=== PATIENT | female | born 2000 | race Caucasian/White ===

== ENCOUNTER 2023-06-04 06:40 | Emergency (ER) | payer OTHER, SELFPAY ==
--- NOTE | ~2023-06-04 | CT_ITS ---
EXAMINATION: CT SOFT TISSUE NECK WITHOUT CONTRAST CLINICAL INFORMATION: Sore throat. Rule out abscess. COMPARISON: None available. TECHNIQUE: Helical imaging was performed in the axial plane with generation of coronal and sagittal reformatted images. This CT examination was performed using dose optimization techniques as appropriate, variously including the following: *Automated exposure control *Adjustment of mA and/or kV according to patient size (this includes techniques or standardized protocols for targeted exams where dose is matched to indication/reason for exam; i.e. extremities or head) *Use of iterative reconstruction technique DLP: 275 mGy-cm FINDINGS: There is mild straightening of cervical lordosis. The vertebral heights, alignment and disc heights are normal. Visualized intraparenchymal brain parenchyma is normal. The paranasal sinuses and mastoid air cells are well-aerated. There is minimal minimally asymmetric thickening of left tonsillar pillar without any heterogeneity, fluid or abscess collection. The nasopharyngeal and laryngeal airway is widely patent. The parapharyngeal soft tissues are normal. Visualized larynx, epiglottis and paralaryngeal soft tissues are normal. Bilateral parotid, submandibular glands and thyroid lobes are symmetrical and normal. No abnormal size neck lymph nodes or mass seen. The lung apices are clear. CT/CT soft tissue neck wo IV con IMPRESSION: Mild asymmetric thickening of left tonsil but no tonsillar abscess or airway compromise No abnormal neck lymph nodes. Normal sinuses.
[2023-06-04 06:42] VITALS: BP 103/63; PULSE 88; RESP 18; TEMP 37.4; O2SAT 96; BMI 19.9
--- NOTE | 2023-06-04 07:25 | PC.NURSE ---
pt a&ox3. respirations even and unlabored. pt reporting throat pain for one week. pt reports being able to eat and drink but has pain. pt reports a dry cough. pt denies nausea, vomiting and chest pain. pt throat is red without splotches. pt lung sounds clear bilaterally.
[2023-06-04] MEDS: predniSONE 20 MG TABLET 40 MG PO (07:32)
[2023-06-04] MEDS: Ibuprofen 400 MG TABLET PO (07:32)
[2023-06-04 07:34] VITALS: PULSE 94; RESP 18; O2SAT 98
--- NOTE | 2023-06-04 07:38 | ED_ITS ---
HPI - General Adult General Chief complaint: Upper Respiratory Symptoms Stated complaint: Sore throat Time Seen by Provider: 06/04/23 07:12 Source: patient and family (Mother) Mode of arrival: ambulatory Limitations: no limitations History of Present Illness HPI narrative: 22-year-old female otherwise healthy presented with sore throat, body ache, voice change. Patient is able to swallow her own saliva, speak in full sentence, patent airway during the interview. Patient declined any recent travel, no exposure to a sick contact, no fever, no chills. Related Data Allergies Allergy/AdvReac Type Severity Reaction Status Date / Time No Known Allergies Allergy Unverified 06/12/20 16:57 [No Known Allergies*] Review of Systems Review of Systems: All other systems are reviewed and are negative Constitutional: Reports as per HPI and Reports no additional constitutional complaints Eyes: Reports as per HPI and Reports no additional eye complaints Reports system reviewed and no additional complaints, except as documented Cardiovascular: Reports as per HPI and Reports no additional cardiovascular complaints Respiratory: Reports as per HPI and Reports no additional respiratory complaints Gastrointestinal: Reports as per HPI and Reports no additional gastrointestinal complaints Genitourinary: Reports no additional female genitourinary complaints Musculoskeletal: Reports no additional musculoskeletal complaints Skin/Breast: Reports system reviewed and no additional complaints, except as docu Psychiatric: Reports no additional psychiatric complaints Endocrine: Reports no additional endocrine complaints Hematologic/Lymphatic: Reports no additional hematologic/lymphatic complaints Allergic/Immunologic: Reports no additional allergic/immunologic complaints Reports system reviewed and no additional complaints, except as documented and Reports Abnormal speech present [facility] Social History Social History Alcohol intake: never Smoked in Last 30 Days: No Use of substances other than those prescribed or required for medical reasons: No Advance Directives: No Physical Exam ED Vital Signs: Vital Signs - 24 hr 06/04/23 06:42 06/04/23 07:34 06/04/23 07:34 Temperature 99.4 F Pulse Rate 88 94 Respiratory Rate 18 18 Blood Pressure 103/63 Pulse Oximetry 96 98 98 Oxygen Delivery Method Room Air Room Air 06/04/23 08:52 Temperature 100.1 F Pulse Rate 114 H Respiratory Rate 18 Blood Pressure 98/51 L Pulse Oximetry 96 Oxygen Delivery Method Room Air BMI result Body Mass Index 19.9 Vital signs have been reviewed as appeared to be correct. Blood pressure normal. Heart rate normal. Respiration rate normal. Temperature normal. Oxygen saturation normal. Appearance: Alert. Oriented X3. No acute distress. Head: Normal external exam. Normocephalic. Atraumatic. No Vences signs noted. No raccoon eyes noted Eyes: PERRLA. EOMI. Conjunctiva and sclera normal. Eyelids normal. ENT: TM's Normal. Pharynx normal. Uvula midline. Moist mucous membranes. No trismus noted. No drooling noted. No muffled voice noted. Neck: Normal inspection. Neck supple. FROM. No adenopathy. Thyroid Normal. No meningeal signs. No neck mass noted. CVS: Normal heart rate and rhythm. Heart sound normal. No murmurs noted. Pulses normal throughout. Respiratory: No respiratory distress. Painless inspiration. Breath sounds normal. No wheezes/rales/rhonchi noted. Chest nontender. No accessory muscle usage noted or decreased air movement noted. Abdomen: Soft and nontender. Bowel sounds normal in all 4 quadrants. No distention noted. No organomegaly noted. No visible injury noted. Back: No CVA tenderness. Full range of motion noted. Skin: Skin warm and dry. Normal skin color. Normal skin turgor. No rashes/lesions/lacerations noted. Extremities: No lower extremity edema. Extremities exhibit normal range of motion. Extremities nontender. Neuro: Oriented X 3. Cranial nerve exam: II-XII are grossly intact No motor deficit. No sensory deficit. Reflexes normal. Course Reevaluation(s) Reevaluation #1: Came in for sore throat, negative serology for viral infection or strep infection, CT of soft tissue neck showing mild thickening of left tonsil otherwise no abscesses or airway compromise, no lymph node, otherwise unremarkable exam. patient received a dose of ibuprofen/prednisone in the ED which I thought to be sufficient to control patient's symptoms. Time: 08:57 Medications Administered Discontinued Medications Generic Name Dose Route Start Last Admin Trade Name Harvey PRN Reason Stop Dose Admin Ibuprofen 400 mg 06/04/23 07:27 06/04/23 07:32 Ibuprofen 400 Mg Tablet PO 06/04/23 07:28 400 mg ONCE ONE Administration Prednisone 40 mg 06/04/23 07:27 06/04/23 07:32 Prednisone 20 Mg Tablet PO 06/04/23 07:28 40 mg ONCE ONE Administration Medical Decision Making Differential Diagnosis Differential Diagnoses: The differential diagnosis associated with the presentation includes (Viral pharyngitis, bacterial pharyngitis, pr tonsillar abscesses, pharyngeal abscess, influenza, COVID.) Admission/Observation Consideration of admission/observation: Escalation of care including admission/observation considered Lab Data MDM Lab Attestation statement: I reviewed the patient's lab results. Labs: Lab Results 06/04/23 Range/Units 07:56 Influenza Type A (PCR) NEGATIVE (Negative) Influenza Type B (PCR) NEGATIVE (Negative) RSV RNA Qual (PCR) NEGATIVE (Negative) SARS-CoV-2 RNA (RT-PCR) NEGATIVE (Negative) S. pyogenes GrpA GANGA Negative (Negative) Independent Interpretation I performed an independent interpretation of an: CT Scan (Soft tissue neck: No acute pathology.) Radiology Impression Discussion of test interpretation with radiology: I have reviewed the radiologist's reading. (Mild asymmetric thickening of left tonsil but no tonsillar abscess or airway compromise No abnormal neck lymph nodes. Normal sinuses.) Discharge Plan Discharge Clinical Impression: Pharyngitis Patient Disposition: Home, Self-Care Instructions: Pharyngitis (ED) Additional Instructions: Take ibuprofen 200 mg tablet ([id number]) every 6 hours if needed for pain. Stand Alone Forms: Work/School Release
[2023-06-04 08:37] LABS: IDNOW Serial# 08D9AD1C
[2023-06-04 08:38] LABS: Strep A Nucleic Acid Negative (Negative)
[2023-06-04 08:51] LABS: Influenza A PCR NEGATIVE (Negative); Influenza B PCR NEGATIVE (Negative); Resp Syncy Virus RNA Qual PCR NEGATIVE (Negative); SARS COV2 PCR INHOUSE NEGATIVE (Negative)
[2023-06-04 08:52] VITALS: BP 98/51; PULSE 114; RESP 18; TEMP 37.8; O2SAT 96
== END 2023-06-04 09:24 | disposition home or self-care (01) ==
PROVIDERS: Emergency Provider Emergency Medicine
DX: J02.9 Acute pharyngitis, unspecified (principal); Z20.822 Contact with and (suspected) exposure to COVID-19; Z20.828 Contact with and (suspected) exposure to other viral communicable diseases
CPT/HCPCS: 0241U; 70490; 87651; 99284

== ENCOUNTER 2024-03-13 11:59 | Emergency (ER) | payer OTHER, SELFPAY ==
[2024-03-13 12:31] VITALS: BP 103/56; PULSE 97; RESP 16; TEMP 37.3; O2SAT 98; BMI 19.6
--- NOTE | 2024-03-13 12:35 | ED.GENADULT ---
HPI - General Adult General Chief complaint: Animal Bite Stated complaint: Dog bite Time Seen by Provider: 03/13/24 13:10 Source: patient Mode of arrival: ambulatory Limitations: no limitations History of Present Illness ED Provider: Tara Ramirez PA-C HPI narrative: 23-year-old female presents to the ER for evaluation of a dog bite to her left hand about 5 or 6 hours ago. She states she knows the dog but they are unaware if the dog has been vaccinated for rabies. Patient sustained a laceration to the back of her 3rd finger and superficial abrasions to her ring finger and pulp of her 3rd finger. She has pain with flexion of the 3rd digit. She is able to fully flex and extend the finger. No numbness or tingling. No active bleeding. complaint: Dog bite to the hands Onset (ago): hour(s) Location: left and upper extremity Radiation: non-radiation Severity: moderate Quality: aching Pain Consistency: other ( improving) Relieving factors: rest Exacerbating factors: movement Associated symptoms: denies other symptoms Treatments prior to arrival: none Related Data Previous Rx's ?Medication ?Instructions ?Recorded amoxicillin 875 mg-potassium 1 tab PO BID #14 tabs 03/13/24 clavulanate 125 mg tablet ibuprofen 600 mg tablet 600 mg PO Q8H PRN pain #14 tabs 03/13/24 Allergies Allergy/AdvReac Type Severity Reaction Status Date / Time No Known Allergies Allergy Verified 03/13/24 12:34 [No Known Allergies*] Review of Systems Review of Systems: Yes all other systems are reviewed and are negative [facility] Social History Social History Alcohol intake: never Advance Directives: No Advance Directives Information Provided: No Do you have a plan to hurt others: No Plan Physical Exam ED Vital Signs: Vital Signs - 24 hr 03/13/24 12:31 03/13/24 15:14 Temperature 99.2 F 99.2 F Pulse Rate 97 97 Respiratory Rate 16 16 Blood Pressure 103/56 L 103/56 L Pulse Oximetry 98 98 Oxygen Delivery Method Room Air Room Air BMI result Body Mass Index 19.6 Appearance: Alert. Oriented X3. No acute distress. HEENT: normal inspection CVS: Normal heart rate and rhythm. Pulses normal. Respiratory: No respiratory distress. Skin: Skin warm and dry. Normal skin color. Normal skin turgor. No rashes. Extremities: left-hand with a 2 cm superficial abrasion over the PIP on the dorsal aspect of the hand. Full range of motion of the 3rd digit. Neurovascularly intact distally. Wound is not oozing or bleeding. No foreign body appreciated. Superficial abrasion at the base of the 4th digit fingernail, no active bleeding. Neuro: Oriented X 3. No motor deficit. No sensory deficit. Course Course Course Narrative: RME: Done by KULDIP Calvert. 23-year-old female presents to ED for dog bite to left 3rd 4th 5th finger. Patient states she does not believe dog is up-to-date with rabies vaccine. And dog's retail sales director was not forthcoming. Patient states incident occurred 5 hours ago. Physical exam positive for dog bites on 3rd 4th 5th finger. Tdap rabies ordered. Medications Administered Discontinued Medications Generic Name Dose Route Start Last Admin Trade Name Freq PRN Reason Stop Dose Admin Diphtheria/Tetanus/Acell Pertussis 0.5 ml 03/13/24 12:35 03/13/24 14:05 Diphth,Pertus(Acell),Tet Adult 0.5 Ml Syringe IM 03/13/24 12:36 0.5 ml .ONCE ONE Administration Rabies Immune Globulin 912 unit 03/13/24 12:35 03/13/24 14:30 Rabies Immune Globulin/Pf 900 Unit/3 Ml Vial 20 unit/kg (912 unit) 03/13/24 12:36 912 unit IM Administration ONCE ONE Rabies Vaccine Human Diploid Cell 1 ml 03/13/24 12:35 03/13/24 14:06 Rabies Vaccine, Human Diploid (Imovax) 1 Ml Vial IM 03/13/24 12:36 1 ml .ONCE ONE Administration Procedures Laceration Laceration 1: Site: hand Side (If applicable): left Size (cm): 2 Description: linear Depth: simple, single layer Pre-repair: wound explored and deep structures intact Skin layer closed with: other (steri strips x3) Medical Decision Making Medical Decision Making MDM Narrative: 23-year-old female presents to the ER for evaluation of a dog bite to the left hand. She has a 2 cm laceration over the dorsal aspect of the 3rd digit with no active bleeding. It is already starting to epithelialize and is not gaping. No need for suture repair today. She had already use soap and water along with hydrogen peroxide to cleanse the wounds. Saline and Betadine were used to clean the wounds here. Steri-Strips were used to ensure adequate approximation of the wound borders persists as it is on a extensor surface. Rabies series was started and immune globulin was administered around the wounds and remainder in the left deltoid. Patient will be started on antibiotics and will be referred to the infusion Center for completion of her rabies series. She was counseled on wound care as well as return precautions for signs and symptoms of infection. Stable for discharge home. Differential Diagnosis Differential Diagnoses: The differential diagnosis associated with the presentation includes Superficial laceration, puncture wound, deep laceration, infected wound, cellulitis Tests considered The following testing was considered but not selected: Considered x-ray of the hand however low clinical suspicion for fracture Prescription Management I considered prescription management with: Pain Medication and Antibiotic Critical Care Time Critical Care Time Critical Care Time: No Discharge Plan Discharge Clinical Impression: Dog bite Qualifiers: Encounter type: initial encounter Qualified Code(s): W54.0XXA - Bitten by dog, initial encounter Patient Disposition: Home, Self-Care Instructions: Animal Bite (ED) Additional Instructions: Take the prescribed antibiotics as directed, complete the entire course and do not miss any doses Follow up with the Infusion Center to complete your rabies series Monitor for signs of infection including redness, pain, drainage, fevers, red streaks up the arm If you develop new or worsening symptoms call 911 or come back to the ER for further evaluation. Prescriptions: New amoxicillin-pot clavulanate 875-125 mg tablet 1 tab PO BID Qty: 14 0RF ibuprofen 600 mg tablet 600 mg PO Q8H PRN (Reason: pain) Qty: 14 0RF Interventions: ED Discharge Assessment Last Done: 03/13/24 15:14 Discharge Date/Time: 03/13/24 15:14 Print Language: Citizen Of [place]
[2024-03-13] MEDS: Diphth,Pertus(ACell),Tet Adult 0.5 ML SYRINGE IM (14:05)
[2024-03-13] MEDS: Rabies Vaccine, Human Diploid (Imovax) 1 ML VIAL IM (14:06)
[2024-03-13] MEDS: Rabies Immune Globulin/PF 900 UNIT/3 ML VIAL 912 UNIT IM (14:30)
[2024-03-13 15:14] VITALS: BP 103/56; PULSE 97; RESP 16; TEMP 37.3; O2SAT 98
== END 2024-03-13 15:14 | disposition home or self-care (01) ==
PROVIDERS: Emergency Provider Emergency Medicine; PCP Physician Assistant
DX: S61.452A Open bite of left hand, initial encounter (principal); W54.0XXA Bitten by dog, initial encounter; Y93.89 Activity, other specified; Y92.9 Unspecified place or not applicable; Y99.9 Unspecified external cause status; Z23 Encounter for immunization; Z20.3 Contact with and (suspected) exposure to rabies
CPT/HCPCS: 12001; 90375; 90471; 90472; 90675; 90715; 96372; 99282; 99284

== ENCOUNTER 2024-04-16 15:00 | Outpatient (RCR) | payer OTHER, SELFPAY ==
[2024-03-16 09:21] VITALS: BP 97/66; PULSE 76; RESP 16; TEMP 37.2; O2SAT 97; BMI 19.5
[2024-03-16] MEDS: Rabies Vaccine, Human Diploid (Imovax) 1 ML VIAL IM (09:27)
[2024-03-27 09:25] VITALS: BP 104/57; PULSE 91; RESP 16; TEMP 36.6; O2SAT 99
[2024-03-27] MEDS: Rabies Vaccine, Human Diploid (Imovax) 1 ML VIAL IM (09:27)
[2024-04-16 15:49] VITALS: BP 116/68; PULSE 82; RESP 18; TEMP 37.1; O2SAT 97
[2024-04-16] MEDS: Rabies Vaccine, Human Diploid (Imovax) 1 ML VIAL IM (15:54)
== END 2024-04-17 08:34 | disposition home or self-care (01) ==
LOC: HO.INF 15:00
PROVIDERS: Visit Provider Physician Assistant
DX: Z20.3 Contact with and (suspected) exposure to rabies (principal); T14.8XXD Other injury of unspecified body region, subsequent encounter; W54.0XXD Bitten by dog, subsequent encounter
CPT/HCPCS: 90471; 90675

== ENCOUNTER 2024-11-05 15:36 | Emergency (ER) | payer OTHER, SELFPAY ==
--- NOTE | ~2024-11-05 | US_ITS ---
CLINICAL HISTORY: pain US pelvis transabdominal and transvaginal with Doppler Comparison: None Findings: Transabdominal scanning performed for overall anatomy. Transvaginal scanning performed for additional detail. Anteverted uterus is 7.9 cm length. Normal myometrium. No endometrial lesion, 3 mm thickness. Small amount of fluid within the endometrium. Intrauterine device is normally positioned. Right ovary 4.2 x 2.5 x 2.3 cm. Left ovary 3.4 x 1.5 x 2.1 cm. Dilated left pelvic vessels are seen. Normal color Doppler with arterial/venous spectral tracing of both ovaries. No free fluid. IMPRESSION: 1. No acute process. 2. Findings which would be consistent with left-sided pelvic congestion syndrome in the appropriate clinical setting. This document has been electronically signed by: German Borrego MD on 11/05/2024 17:48:45
[2024-11-05 16:14] VITALS: BP 102/46; PULSE 76; RESP 16; TEMP 36.8; O2SAT 97; BMI 19.5
--- NOTE | 2024-11-05 16:17 | ED.GENADULT ---
HPI - General Adult General Chief complaint: Abdominal Pain Stated complaint: Abd pain Time Seen by Provider: 11/05/24 21:15 Source: patient Mode of arrival: ambulatory Limitations: no limitations History of Present Illness ED Provider: HPI narrative: Patient with lower pelvic pain for last 2 months off and on no other symptoms no urinary symptoms no fever no chills no history of ovarian cyst use supposed to see engineering specialist next week but unable to see her OBG Related Data Previous Rx's ?Medication ?Instructions ?Recorded amoxicillin 875 mg-potassium 1 tab PO BID #14 tabs 03/13/24 clavulanate 125 mg tablet ibuprofen 600 mg tablet 600 mg PO Q8H PRN pain #14 tabs 03/13/24 ibuprofen 600 mg tablet 600 mg PO Q6H PRN fever or pain 11/05/24 #30 tabs Allergies Allergy/AdvReac Type Severity Reaction Status Date / Time No Known Allergies Allergy Verified 11/05/24 16:16 [No Known Allergies*] Review of Systems Review of Systems: Yes all other systems are reviewed and are negative [facility] Social History Social History Alcohol intake: never Advance Directives: No Advance Directives Information Provided: No Do you have a plan to hurt others: No Plan Physical Exam ED Vital Signs: Vital Signs - 24 hr 11/05/24 16:14 Temperature 98.2 F Pulse Rate 76 Respiratory Rate 16 Blood Pressure 102/46 L Pulse Oximetry 97 Oxygen Delivery Method Room Air BMI result Body Mass Index 19.5 Appearance: Alert. Oriented X3. No acute distress. Eyes: No pallor or icterus ENT: Pharynx normal. Oral Mucosa moist Neck: Normal inspection. Neck supple. CVS: Normal heart rate and rhythm. Pulses normal. Respiratory: No respiratory distress. Equal air entry bilateral, Abdomen: Soft and nontender. Bowel sounds are present, no mass palpable, no CVA tenderness Skin: Skin warm and dry. Normal skin color. Normal skin turgor. Extremities: No lower extremity edema. No calf tenderness Neuro: Oriented X 3. No motor deficit. Course Course Course Narrative: RME, this is a rapid medical exam performed by Chapito Stewart please refer to primary provider for complete H&P- 23-year-old female presents for evaluation of pelvic pain. She reports the symptoms have been going on for about a month. Plan for labs, and a pelvic ultrasound Medical Decision Making Medical Decision Making [facility] Narrative: Patient with chronic pelvic pain likely pelvic congestion syndrome ultrasound negative for acute Differential Diagnosis Differential Diagnoses: The differential diagnosis associated with the presentation includes Ovarian cyst/UTI/cystitis pelvis congestion syndrome Lab Data [facility] Lab Attestation statement: I reviewed the patient's lab results. 11/05/24 19:57 11/05/24 19:57 Labs: Lab Results 11/05/24 11/05/24 Range/Units 19:57 21:05 WBC 8.8 (4.8-10.8) X10*3/uL RBC 4.48 (4.20-5.50) X10*6/uL Hgb 14.1 (12.0-16.0) g/dl Hct 42.0 (37.0-47.0) % MCV 93.8 (80.0-98.0) fL MCH 31.5 (27.0-33.0) pg MCHC 33.6 (31.0-35.0) g/dl RDW 11.8 (11.0-16.0) % Plt Count 299 (160-400) X10*3/uL MPV 9.2 L (9.4-12.3) fL Immature Gran % (Auto) 0.2 (0.0-0.4) % Neut % (Auto) 56.0 (45-73) % Lymph % (Auto) 31.7 (20-40) % Karnes % (Auto) 6.5 (2-11) % Eos % (Auto) 5.3 H (0-4) % Baso % (Auto) 0.3 (0-2) % Lymph # (Auto) 2.8 (1.2-4.9) X10*3/uL Karnes # (Auto) 0.6 (0.1-1.2) X10*3/uL Eos # (Auto) 0.5 H (0.0-0.4) X10*3/uL Baso # (Auto) 0.0 (0.0-0.2) X10*3/uL Abs Immat Gran (auto) 0.02 (0.00-0.03) X10*3/uL Absolute Neuts (auto) 4.9 (2.0-8.3) x10*3/uL Absolute Nucleated RBC 0.000 (0.0-0.012) X10*3/uL Nucleated RBC % (auto) 0.0 (0.0-0.2) /100WBC Sodium 139 (135-145) mmol/L Potassium 4.6 (3.3-5.1) mmol/L Chloride 109 H (96-108) mmol/L Carbon Dioxide 22 (22-29) mmol/L Anion Gap 13 (12-20) BUN 9 (9-16) mg/dL Creatinine 0.58 (0.5-1.4) mg/dL Estim Creat Clear Calc 107.0 Estimated GFR > 60 Random Glucose 77 (60-115) mg/dL Calcium 8.8 (8.4-10.2) mg/dL Beta HCG, Quant < 2 mIU/mL Urine Color Yellow Urine Appearance Clear Urine pH 6.0 (5.0-9.0) Ur Specific Outlook 1.020 (1.005-1.025) Urine Protein Negative (Neg-Trace) mg/dL Urine Glucose (UA) Negative (Negative) mg/dL Urine Ketones Negative (Negative) mg/dL Urine Blood Negative (Negative) Urine Nitrite Negative (Negative) Ur Leukocyte Esterase Negative (Negative) Urine RBC 0-2 (0-2) /HPF Urine WBC 0-5 (0-5) /HPF Ur Squamous Epith Cells 0-2 (0-2) /HPF Urine Bacteria None Seen (None Seen) Hyaline Casts 0-2 (0-2) /LPF Radiology Impression Discussion of test interpretation with radiology: I have reviewed the radiologist's reading. Radiologist Impression: [place] [id number] Ultrasound Report Signed Patient: Kimmie Edge MR#: [id number] : 2000 Acct:[id number] Age/Sex: 23 / F ADM Date: 11/05/24 Loc: .ED Attending Dr: Ordering Physician: Angelo Stewart Date of Service: 11/05/24 Procedure(s): US pelvic and transvaginal Accession Number(s): [id number] cc: Angelo Stewart; Physician,Unknown ~ CLINICAL HISTORY: pain US pelvis transabdominal and transvaginal with Doppler Comparison: None Findings: Transabdominal scanning performed for overall anatomy. Transvaginal scanning performed for additional detail. Anteverted uterus is 7.9 cm length. Normal myometrium. No endometrial lesion, 3 mm thickness. Small amount of fluid within the endometrium. Intrauterine device is normally positioned. Right ovary 4.2 x 2.5 x 2.3 cm. Left ovary 3.4 x 1.5 x 2.1 cm. Dilated left pelvic vessels are seen. Normal color Doppler with arterial/venous spectral tracing of both ovaries. No free fluid. IMPRESSION: 1. No acute process. 2. Findings which would be consistent with left-sided pelvic congestion syndrome in the appropriate clinical setting. This document has been electronically signed by: German Borrego MD on 11/05/2024 17:48:45 Discharge Plan Discharge Clinical Impression: Female pelvic congestion syndrome Patient Disposition: Home, Self-Care Instructions: Pelvic Pain in Women (ED) Additional Instructions: You have likely pelvis congestion syndrome as the cause of your pelvic pain Take ibuprofen 600 mg every 6 hours as needed for the pain and follow up with your show host/hostess Prescriptions: New ibuprofen 600 mg tablet 600 mg PO Q6H PRN (Reason: fever or pain) Qty: 30 0RF No Action amoxicillin-pot clavulanate 875-125 mg tablet 1 tab PO BID Qty: 14 0RF ibuprofen 600 mg tablet 600 mg PO Q8H PRN (Reason: pain) Qty: 14 0RF Print Language: Polish
[2024-11-05 20:10] LABS: MANUAL DIFF FLAG NO
[2024-11-05 20:11] LABS: Basophils Percent Auto 0.3 % (0-2); Eosinophils Absolute Auto 0.5 X10*3/uL (0.0-0.4); Eosinophils Percent Auto 5.3 % (0-4); Hemoglobin 14.1 g/dl (12.0-16.0); Imm Gran Abs Auto 0.02 X10*3/uL (0.00-0.03); Imm Gran Pct Auto 0.2 % (0.0-0.4); Lymphocytes Absolute Auto 2.8 X10*3/uL (1.2-4.9); Lymphocytes Percent Auto 31.7 % (20-40); Mean Corpuscular HGB Conc 33.6 g/dl (31.0-35.0); Mean Corpuscular Hemoglobin 31.5 pg (27.0-33.0); Mean Corpuscular Volume 93.8 fL (80.0-98.0); Mean Platelet Volume 9.2 fL (9.4-12.3); Monocytes Absolute Auto 0.6 X10*3/uL (0.1-1.2); Monocytes Percent Auto 6.5 % (2-11); Neutrophils Absolute Auto 4.9 x10*3/uL (2.0-8.3); Platelet Count 299 X10*3/uL (160-400); Red Blood Count 4.48 X10*6/uL (4.20-5.50); Red Cell Distribution Width 11.8 % (11.0-16.0); White Blood Count 8.8 X10*3/uL (4.8-10.8)
[2024-11-05 20:35] LABS: Anion Gap 13 (12-20); Blood Urea Nitrogen 9 mg/dL (9-16); Calcium 8.8 mg/dL (8.4-10.2); Carbon Dioxide 22 mmol/L (22-29); Chloride 109 mmol/L (96-108); Estimated Glomerular Filt Rate > 60; Glucose Random 77 mg/dL (60-115); Potassium 4.6 mmol/L (3.3-5.1); Sodium 139 mmol/L (135-145)
[2024-11-05 20:37] LABS: HCG Quantitative < 2 mIU/mL
[2024-11-05 21:13] LABS: Appearance Urine Clear; Color Urine Yellow; Glucose Urine UA Negative (Negative); Leukocyte Esterase Urine Negative (Negative); Nitrite Urine Negative (Negative); Urine Blood Negative (Negative); Urine Ketones Negative (Negative); Urine Protein Negative (Neg-Trace)
[2024-11-05 21:18] LABS: Bacteria Urine None Seen (None Seen); Hyaline Casts Urine 0-2 /LPF (0-2); RBC Urine 0-2 /HPF (0-2); Squamous Epithelial Cell Urine 0-2 /HPF (0-2); WBC Urine 0-5 /HPF (0-5)
[2024-11-05] MEDS: Ibuprofen 600 MG TABLET PO (21:55)
[2024-11-05 21:59] VITALS: BP 104/53; PULSE 73; RESP 16; TEMP 36.9; O2SAT 96
[2024-11-05 22:04] VITALS: BP 104/53; PULSE 71; RESP 16; TEMP 36.9; O2SAT 98
== END 2024-11-05 22:05 | disposition home or self-care (01) ==
PROVIDERS: Physician Assistant; Emergency Provider Internal Medicine; PCP Physician Assistant
DX: N94.89 Other specified conditions associated with female genital organs and menstrual cycle (principal); R10.2 Pelvic and perineal pain
CPT/HCPCS: 36415; 76830; 76856; 80048; 81001; 84702; 85025; 99283; 99284

== ENCOUNTER → 2024-11-05 16:16 | Outpatient (BNV) | payer OTHER, SELFPAY | PROVIDERS: Visit Provider Radiology Diagnostic Radiology | DX: R10.2 Pelvic and perineal pain (principal) | CPT/HCPCS: 76830; 76856 ==